=== PATIENT | female | born 1950 | race Caucasian/White ===

== ENCOUNTER → 2019-06-06 | Outpatient (CLI) | payer MEDICARE ==
[~2019-06-06] MED LIST: ALKA-SELTZER P1 EAC4; ATOR20; Acyclovir400 MG PO; LORPSEER12 PO; METF500C; MUPI2TC TOP; ONDA4ODT; PRED20 PO; PROM25 PO; Prinivil10 MG; RXHYDACE PO; [UNRECOGNIZED DRUG - CODE]
[2019-06-08 08:08] LABS: Stool Occult Bld Immuno 1 Negative (NEGATIVE)
== END | disposition home or self-care (01) ==
LOC: LAB 16:33 → LAB SHORT 16:33
PROVIDERS: Family Medicine
DX: Z12.11 Encounter for screening for malignant neoplasm of colon (principal)
CPT/HCPCS: G0328